=== PATIENT | male | born 1970 | race Caucasian/White ===

== ENCOUNTER 2017-03-26 13:27 | Emergency (ER) | payer BC ==
[2017-03-26] MEDS ORDERED: LORazepam TAB(*) 1 MG PO ONE (18:06)
--- NOTE | 2017-03-26 18:25 | ED ---
Complex/Multi-Sys Presentation - HPI Summary HPI Summary: 46M presents with increase anxiety over past 2 months. He states that since his friend has his foot amputated he has been experiencing increase anxiety. He has been by is doctor and has been started on buspar and antidepressant. He was told needs to get blood pressure under control before can start medication but he has been self medicating with half a tab. He states when his anxiety acts up he feels palpitations, shaky and flushed. He states hospitals make it worst. He states that deep breathing makes it better. - History Of Current Complaint Chief Complaint: EDPsychosocial - Allergies/Home Medications Allergies/Adverse Reactions: Allergies Allergy/AdvReac Type Severity Reaction Status Date / Time Penicillins Allergy Hives Verified 03/26/17 13:44 Home Medications: Home Medications Amlodipine Besylate [Norvasc 5 mg tab] 5 mg PO DAILY 03/26/17 [History Confirmed 03/26/17] Buspirone HCl 7.5 mg PO BID 03/26/17 [History Confirmed 03/26/17] Escitalopram (NF) [Lexapro 10 mg (NF)] 10 mg PO BEDTIME 03/26/17 [History Confirmed 03/26/17] Spironolactone [Aldactone 25 MG-] 25 mg PO DAILY 03/26/17 [History Confirmed ] Tamsulosin HCl [Flomax] 0.4 mg PO DAILY 03/26/17 [History Confirmed 03/26/17] PMH/Surg Hx/FS Hx/Imm Hx Endocrine/Hematology History: Denies: Hx Anticoagulant Therapy Cardiovascular History: Reports: Hx Hypertension - Immunization History Immunizations Up to Date: Yes Infectious Disease History: No Infectious Disease History: Denies: Traveled Outside the [place] in Last 30 Days - Family History Known Family History: Positive: Other - anxiety - Social History Alcohol Use: Occasionally Substance Use Type: Reports: None Smoking Status (MU): Never Smoked Tobacco Review of Systems Negative: Fever Positive: Palpitations. Negative: Chest Pain Negative: Shortness Of Breath Positive: Anxious All Other Systems Reviewed And Are Negative: Yes Physical Exam Triage Information Reviewed: Yes Vital Signs On Initial Exam: Initial Vitals Temp Pulse Resp BP Pulse Ox 98.7 F 96 19 175/96 98 03/26/17 13:42 03/26/17 13:42 03/26/17 13:42 03/26/17 13:42 03/26/17 13:42 Vital Signs Reviewed: Yes Appearance: Positive: Well-Appearing Skin: Positive: Warm, Dry Head/Face: Positive: Normal Head/Face Inspection Eyes: Positive: Normal, Conjunctiva Clear Respiratory/Lung Sounds: Positive: Clear to Auscultation, Breath Sounds Present Cardiovascular: Positive: Normal, RRR Abdomen Description: Positive: Nontender, Soft Bowel Sounds: Positive: Present Musculoskeletal: Positive: Normal Neurological: Positive: Normal Psychiatric: Positive: Anxious - [place] Coma Scale Coma Scale Total: 15 Diagnostics - Vital Signs Vital Signs Temp Pulse Resp BP Pulse Ox 03/26/17 18:19 18 03/26/17 16:54 98.6 F 103 17 180/106 98 03/26/17 13:42 98.7 F 96 19 175/96 98 - Laboratory Result Diagrams: 03/26/17 19:15 03/26/17 19:15 Lab Statement: Any lab studies that have been ordered have been reviewed, and results considered in the medical decision making process. - EKG No standard instances Cardiac Rate: NL EKG Rhythm: Sinus Rhythm ST Segment: Normal EKG Interpretation: normal sinus rhythm Re-Evaluation - Re-Evaluation First Eval Re-Evaluation Time: 20:15 Change: Improved Comment: discussed labs feels good with ativan. Complex Multi-Symp Course/Dx Course Of Treatment: 46M presents with increase anxiety over past 2 months. He states that since his friend has his foot amputated he has been experiencing increase anxiety. He has been by is doctor and has been started on buspar and antidepressant. He was told needs to get blood pressure under control before can start medication but he has been self medicating with half a tab. He states when his anxiety acts up he feels palpitations, shaky and flushed. He states hospitals make it worst. He states that deep breathing makes it better. on exam appears anxious. lungs CTA. heart RRR. gave dose of ativan as patient states becomes very anxious when gets lab drawn. labs within normal limit. feeling better after ativan. discussed will add hydroxyzine on for immediate relief of anxiety. told to follow up with primary. patient understand and agrees with plan. - Diagnoses Differential Diagnoses/HQI/PQRI: Other - anxiety, arrhythmia, ND Provider Diagnoses: Anxiety Discharge - Discharge Plan Condition: Good Disposition: HOME Prescriptions: hydrOXYzine HCL TAB* [Atarax 25 MG TAB*] 25 mg PO QID PRN #20 tab PRN Reason: Anxiety Patient Education Materials: Anxiety (ED) Referrals: Eduardo Irwin DO [Primary Care Provider] - Additional Instructions: Practice deep breathing Take hydroxyzine up to four tablets daily for relief of anxiety Follow up with primary with a week Return to ED if develop any new or worsening symptoms
[2017-03-26 19:22] LABS: Hematocrit 48 % (42-52); Hemoglobin 16.3 g/dl (14.0-18.0); Mean Corpuscular HGB Conc 34 g/dl (31-36); Mean Corpuscular Hemoglobin 29 pg (27-31); Mean Corpuscular Volume 85 fL (80-94); Mean Platelet Volume 8 um3 (7.4-10.4); Red Blood Count 5.71 10^6/ul (4.0-5.4); Red Cell Distribution Width 14 % (10.5-15); White Blood Count 10.1 10^3/ul (3.5-10.8)
[2017-03-26 19:37] LABS: Albumin 4.5 g/dL (3.2-5.2); BUN/Creatinine Ratio 10.2 (8-20); Calcium 9.7 mg/dL (8.6-10.3); EGFR African American 120.4 (>60); EGFR Non-African American 93.6 (>60); Globulin 3.1 g/dL (2-4); Magnesium 1.9 mg/dL (1.9-2.7); Potassium 3.5 mmol/L (3.5-5.0); Total Bilirubin 0.4 mg/dL (0.2-1.0); Total Protein 7.6 g/dL (6.4-8.9)
[2017-03-26 19:39] LABS: Troponin I 0.01 ng/mL (<0.04)
[2017-03-26] MEDS ORDERED: Acetaminophen TAB* 325 MG PO ONE (20:17)
[2017-03-26 20:18] LABS: TSH (Thyroid Stimulating Horm) 1.21 mcIU/mL (0.34-5.60)
[2017-03-26] MEDS ORDERED: hydrOXYzine HCL TAB* 25 MG PO ONE (20:19)
[2017-03-26 20:40] VITALS: BP 174/106
== END 2017-03-26 20:40 | disposition home or self-care (01) ==
LOC: ED 13:27
DX: F41.9 Anxiety disorder, unspecified (principal); I10 Essential (primary) hypertension; R00.2 Palpitations; Z79.899 Other long term (current) drug therapy
CPT/HCPCS: 36415; 80053; 83735; 84443; 84484; 85025; 93005; 99282; A9270-GY